=== PATIENT | female | born 1980 | race Caucasian/White ===

== ENCOUNTER 2018-03-16 00:34 | Emergency (ER) | payer MEDICAID, OTHER ==
[2018-03-16] MEDS ORDERED: NS 1,000 ML IV ONE (00:39)
--- NOTE | 2018-03-16 00:42 | EDPHY ---
H & P Time Seen by Provider: 03/16/18 00:39 HPI/ROS: HPI CHIEF COMPLAINT: Narcotic overdose HISTORY OF PRESENT ILLNESS: Patient is a 37-year-old female, she presents emergency room by EMS after she had a narcotic overdose in custodial. She was in the shower and staff found her unresponsive on the ground in the shower. It is unclear if she had head strike however she does complain of headache. This was unwitnessed. There was no CPR given however there was 4 mg intranasal Narcan given with good response. She woke up after this no vomiting. She presents emergency room stating that she does shoot up heroin she did shoot up heroin in her left arm earlier this evening. She states she has been in custodial for 42 days. She now presents emergency room stating that her only complaint is a global headache. Past Medical History: Admits to IV heroin use regularly Past Surgical History: No recent surgical history Social History: Currently incarcerated, history of substance abuse Family History: Noncontributory ROS REVIEW OF SYSTEMS: A comprehensive 10 point review of systems is otherwise negative aside from elements mentioned in the history of present illness. Exam Constitutional triage nursing summary reviewed, vital signs reviewed, awake/ alert. Eyes normal conjunctivae and sclera, EOMI, PERRLA. HENT head/neck atraumatic on exam, moist mucus membranes, no epistaxis, neck supple/ no meningismus, no raccoon eyes. Respiratory clear to auscultation bilaterally, normal breath sounds, no respiratory distress, no wheezing. Cardiovascular rate normal, regular rhythm, no murmur, no edema, distal pulses normal. Gastrointestinal soft, non-tender, no rebound, no guarding, normal bowel sounds, no distension, no pulsatile mass. Genitourinary no CVA tenderness. Musculoskeletal no midline vertebral tenderness, full range of motion, no calf swelling, no tenderness of extremities, no meningismus, good pulses, neurovascularly intact. Skin pink, warm, & dry, no rash, skin atraumatic. Neurologic awake, alert and oriented x 3, AAOx3, moves all 4 extremities equally, motor intact, sensory intact, CN II-XII intact, normal cerebellar, normal vision, normal speech. Psychiatric normal mood/affect. Heme/Lymph/Immune no lymphadenopathy. Differential Diagnosis: Includes but is not limited to in a particular order narcotic overdose, electrolyte disturbance, dehydration, narcotic overdose leading to being unresponsive, with head strike and shower Medical Decision Making: Plan for this patient IV establishment full snow remover, monitor closely for 1st degree sedation, Narcan as needed, CT scan head without contrast given headache and found down on the shower ground. Re-evaluation: CT scan head without contrast negative for acute traumatic injury called to my by Dr. Moon. 0230: Patient monitored here for over 2 hr. She has not had any further sedation. She has been resting comfortably. No complaints. She is medically cleared to go to custodial. Source: Patient, Police, EMS - Medical/Surgical History Hx Asthma: No Hx Chronic Respiratory Disease: No Hx Diabetes: No Hx Cardiac Disease: No Hx Renal Disease: No Hx Cirrhosis: No Hx Alcoholism: No Hx HIV/AIDS: No Hx Splenectomy or Spleen Trauma: No Other PMH: L ACL SURGERY. OPIATE DEPENDENCY, SUBOXONE THERAPY, Pneumonia - Social History Smoking Status: Heavy smoker Constitutional: Initial Vital Signs Temperature (C) 36.5 C 03/16/18 00:35 Heart Rate 96 03/16/18 00:35 Respiratory Rate 20 03/16/18 00:35 Blood Pressure 142/89 H 03/16/18 00:35 O2 Sat (%) 93 03/16/18 00:35 O2 Delivery Mode Room Air Allergies/Adverse Reactions: acetaminophen [From Tylenol] Allergy (Verified 03/16/18 00:44) aspirin Allergy (Verified 03/16/18 00:44) Cephalosporins Allergy (Verified 03/16/18 00:44) erythromycin base [Erythromycin Base] Allergy (Verified 03/16/18 00:44) Penicillins Allergy (Verified 03/16/18 00:44) povidone-iodine [From Betadine] Allergy (Verified 03/16/18 00:44) soap [From Betadine] Allergy (Verified 03/16/18 00:44) Sulfa (Sulfonamide Antibiotics) [Sulfa(Sulfonamide Antibiotics)] Allergy ( Verified 03/16/18 00:44) Home Medications: Medication Instructions Recorded Buprenorphine HCl/Naloxone HCl 0.5 - 1.0 tab SL TID 06/24/14 [Suboxone 8 mg-2 mg Tablet] levOFLOXACIN [levAQUIN (*)] 750 mg PO DAILY 4 Days tab 10/12/14 Vilazodone HCl [Viibryd] 40 mg PO DAILY 10/16/14 levOFLOXACIN [levAQUIN (RX)] 750 mg PO DAILY #7 tab 10/21/14 Medical Decision Making - Data Points Laboratory Results: Laboratory Results 03/16/18 00:30 03/16/18 00:30 03/16/18 03/16/18 00:30 00:30 WBC 10.21 10^3/uL H 10^3/uL (3.80-9.50) RBC 4.42 10^6/uL 10^6/uL (4.18-5.33) Hgb 12.5 g/dL L g/dL (12.6-16.3) Hct 38.7 % % (38.0-47.0) MCV 87.6 fL fL (81.5-99.8) MCH 28.3 pg pg (27.9-34.1) MCHC 32.3 g/dL L g/dL (32.4-36.7) RDW 15.1 % % (11.5-15.2) Plt Count 190 10^3/uL 10^3/uL (150-400) MPV 10.3 fL fL (8.7-11.7) Neut % (Auto) 45.4 % % (39.3-74.2) Lymph % (Auto) 45.7 % H % (15.0-45.0) [place] % (Auto) 7.1 % % (4.5-13.0) Eos % (Auto) 0.9 % % (0.6-7.6) Baso % (Auto) 0.3 % % (0.3-1.7) Nucleat RBC Rel Count 0.0 % % (0.0-0.2) Absolute Neuts (auto) 4.64 10^3/uL 10^3/uL (1.70-6.50) Absolute Lymphs (auto) 4.67 10^3/uL H 10^3/uL (1.00-3.00) Absolute Monos (auto) 0.72 10^3/uL 10^3/uL (0.30-0.80) Absolute Eos (auto) 0.09 10^3/uL 10^3/uL (0.03-0.40) Absolute Basos (auto) 0.03 10^3/uL 10^3/uL (0.02-0.10) Absolute Nucleated RBC 0.00 10^3/uL 10^3/uL (0-0.01) Immature Gran % 0.6 % % (0.0-1.1) Immature Gran # 0.06 10^3/uL 10^3/uL (0.00-0.10) Sodium 140 mEq/L mEq/L (135-145) Potassium 3.5 mEq/L mEq/L (3.3-5.0) Chloride 103 mEq/L mEq/L (97-110) Carbon Dioxide 20 mEq/l L mEq/l (22-31) Anion Gap 17 mEq/L H mEq/L (8-16) BUN 13 mg/dL mg/dL (7-23) Creatinine 0.9 mg/dL mg/dL (0.6-1.0) Estimated GFR > 60 Glucose 224 mg/dL H mg/dL (70-100) Calcium 9.2 mg/dL mg/dL (8.5-10.4) Medications Given: Discontinued Medications Sodium Chloride (Ns) 1,000 mls @ 0 mls/hr IV EDNOW ONE; Wide Open PRN Reason: Protocol Stop: 03/16/18 00:40 Last Admin: 03/16/18 00:46 Dose: 1,000 mls Departure - Departure Disposition: Home, Routine, Self-Care Clinical Impression: Narcotic overdose Qualifiers: Encounter type: initial encounter Injury intent: intentional self-harm Qualified Code(s): T40.602A - Poisoning by unspecified narcotics, intentional self-harm, initial encounter Condition: Good Instructions: Opioid Overdose (ED) Additional Instructions: 1. Please stop doing drugs specifically stop doing heroin. It is very dangerous. Referrals: NONE *PRIMARY CARE P,. [Primary Care Provider] - As per Instructions
[2018-03-16 00:51] LABS: PLATELET COUNT 190 10^3/uL (150-400)
[2018-03-16 02:55] VITALS: BP 130/83
[2018-03-16] MEDS ORDERED: ONDANSETRON DISINTEGRATING 4 MG TAB PO ONE (02:58)
[2018-03-16] MEDS ORDERED: ONDANSETRON DISINTEGRATING 4 MG TAB ONE (02:58)
== END 2018-03-16 02:53 | disposition home or self-care (01) ==
LOC: EDUNIT#
DX: T40.602A Poisoning by unspecified narcotics, intentional self-harm, initial encounter (principal); E86.9 Volume depletion, unspecified

== ENCOUNTER 2018-10-20 18:35 | Emergency (ER) | payer OTHER ==
[2018-10-20] MEDS ORDERED: NS 1,000 ML IV ONE (18:53)
[2018-10-20] MEDS ORDERED: IOPAMIDOL (ISOVUE 370) 100 ML BTL IV ONE (19:39)
[2018-10-20 19:45] LABS: PLATELET COUNT 225 10^3/uL (150-400)
[2018-10-20] MEDS ORDERED: KETOROLAC 30 MG/1 ML SDV ONE (20:34)
[2018-10-20] MEDS ORDERED: KETOROLAC 30 MG/1 ML SDV IVP ONE (20:35)
--- NOTE | 2018-10-20 20:35 | EDPHY ---
H & P Time Seen by Provider: 10/20/18 18:43 HPI/ROS: CHIEF COMPLAINT: Abdominal pain HISTORY OF PRESENT ILLNESS: 38-year-old female presents from [facility] with reports of right-sided lower abdominal pain for the last 2 days. No fever. No vomiting, no urinary complaints, no back pain. Slight decreased appetite this evening, last bowel movement 3-4 hours ago. Last menstrual cycle October 03. Had been taking ibuprofen with some relief 2 days ago but no relief of the pain today. Seen by the nursing staff and referred to the emergency department given concerns of right lower quadrant pain with rebound. REVIEW OF SYSTEMS: A comprehensive 10 system review of systems was reviewed and is otherwise negative aside from elements mentioned in the history of present illness and medical decision making. PAST MEDICAL HISTORY: Opiate dependency on Suboxone, history of pneumonia. Multiple antibiotic allergies. SOCIAL HISTORY: Heavy smoker, currently incarcerated. VITAL SIGNS Reviewed by me. GENERAL: Well-developed, well-nourished, slightly tearful, complaining of pain.. HEENT: Atraumatic. Eyes: No icterus, no injection. Mouth: moist mucous membranes. No erythema or lesions. Neck: supple with no adenopathy. LUNGS: Clear to auscultation bilaterally, no wheezes, rhonchi or rales. CARDIAC: Regular rate and rhythm, no rubs, murmurs or gallops. ABDOMEN: Soft, moderate right lower quadrant tenderness. Voluntary guarding. No rebound on my examination. Mild right flank discomfort. BACK: No CVA tenderness. EXTREMITIES: No trauma. No edema. Range of motion is normal throughout. NEURO: Alert and oriented, grossly nonfocal. SKIN: Warm and dry, no rash. PSYCHIATRIC: Normal mentation, no agitation. Smoking Status: Heavy smoker Constitutional: Initial Vital Signs Temperature (C) 36.6 C 10/20/18 18:39 Heart Rate 93 10/20/18 18:39 Respiratory Rate 18 10/20/18 18:39 Blood Pressure 134/90 H 10/20/18 18:39 O2 Sat (%) 99 10/20/18 18:39 O2 Delivery Mode Room Air Allergies/Adverse Reactions: aspirin Allergy (Verified 10/20/18 18:38) carbamazepine [From Tegretol] Allergy (Verified 10/20/18 18:38) Cephalosporins Allergy (Verified 10/20/18 18:38) erythromycin base [Erythromycin Base] Allergy (Verified 10/20/18 18:38) Penicillins Allergy (Verified 10/20/18 18:38) povidone-iodine [From Betadine] Allergy (Verified 10/20/18 18:38) soap [From Betadine] Allergy (Verified 10/20/18 18:38) Sulfa (Sulfonamide Antibiotics) [Sulfa(Sulfonamide Antibiotics)] Allergy ( Verified 10/20/18 18:38) Home Medications: Medication Instructions Recorded Amitriptyline HCl 10/20/18 Gabapentin 10/20/18 Phenazopyridine HCl [Pyridium] 200 mg PO TID #6 tab 10/20/18 levOFLOXACIN [Levofloxacin] 750 mg PO DAILY #6 tablet 10/20/18 Medical Decision Making - Diagnostics Imaging Results: Imaging Impressions Abdomen CT 10/20/18 18:53 Impression: 1. Mild right urothelial enhancement and slight thickening raises the possibility of inflammation related to a urinary tract infection. 2. 3 cm right adnexal cyst. 3. Nonspecific 2 cm right hepatic lesion. Consider ultrasound for further characterization. Of course, if there are any old outside imaging studies of the liver, we would be happy to review them to assess for interval change. 4. Constipation. 5. Normal appendix. Results discussed with Dr. Schafer at 8:16 PM. General information for patients regarding this examination can be found at [email or web address]. If you have questions or comments about this report, please contact me at [phone] (hospital) or [phone] (cell). ED Course/Re-evaluation: 38-year-old female presents from [facility] with a right lower quadrant pain for the last 2 days. IV was placed. Patient received a L of normal saline. White count is 14, electrolytes are normal, not . CT scan demonstrates normal appendix, signs of constipation, inflammatory changes of the right ureter suggestive of infection, right adnexal cyst as well as cyst in the liver. Patient was reexamined. She continues to have discomfort in the right lower quadrant. She received Toradol IV. Urinalysis demonstrates 25-50 white cells per high-power field. Due to the patient's multiple allergies, she was placed on levofloxacin to cover for urinary tract infection with early pyelonephritis. Patient was discharged with instructions regarding levofloxacin, Pyridium, magnesium citrate for constipation. She will follow up with respect to possible liver abnormalities and adnexal cyst. Differential Diagnosis: The differential diagnosis for the patient's abdominal pain was considered including but not limited to ovarian cyst, pelvic inflammatory disease, ovarian torsion, urinary tract infection, related complications, and appendicitis. - Data Points Laboratory Results: Laboratory Results 10/20/18 19:10 10/20/18 19:10 10/20/18 10/20/18 10/20/18 20:05 19:10 19:10 WBC RBC Hgb Hct MCV MCH MCHC RDW Plt Count MPV Neut % (Auto) Lymph % (Auto) [place] % (Auto) Eos % (Auto) Baso % (Auto) Nucleat RBC Rel Count Absolute Neuts (auto) Absolute Lymphs (auto) Absolute Monos (auto) Absolute Eos (auto) Absolute Basos (auto) Absolute Nucleated RBC Immature Gran % Immature Gran # Sodium 138 mEq/L mEq/L (135-145) Potassium 4.5 mEq/L mEq/L (3.5-5.2) Chloride 107 mEq/L mEq/L (97-110) Carbon Dioxide 24 mEq/l mEq/l (22-31) Anion Gap 7 mEq/L mEq/L (6-14) BUN 11 mg/dL mg/dL (7-23) Creatinine 0.6 mg/dL mg/dL (0.6-1.0) Estimated GFR > 60 Glucose 90 mg/dL mg/dL (70-100) Calcium 9.5 mg/dL mg/dL (8.5-10.4) Beta HCG, Qual NEGATIVE Urine Color PALE YELLOW Urine Appearance CLEAR Urine pH 7.0 (5.0-7.5) Ur Specific [place] 1.015 (1.002-1.030) Urine Protein NEGATIVE (NEGATIVE) Urine Ketones NEGATIVE (NEGATIVE) Urine Blood 1+ H (NEGATIVE) Urine Nitrate NEGATIVE (NEGATIVE) Urine Bilirubin NEGATIVE (NEGATIVE) Urine Urobilinogen NEGATIVE EU EU (0.2-1.0) Ur Leukocyte Esterase 1+ H (NEGATIVE) Urine RBC 5-10 /hpf H /hpf (0-3) Urine WBC 25-50 /hpf H /hpf (0-3) Ur Epithelial Cells TRACE /lpf /lpf (NONE-1+) Urine Bacteria TRACE /hpf H /hpf (NONE SEEN) Urine Glucose NEGATIVE (NEGATIVE) 10/20/18 19:10 WBC 14.09 10^3/uL H 10^3/uL (3.80-9.50) RBC 4.87 10^6/uL 10^6/uL (4.18-5.33) Hgb 13.7 g/dL g/dL (12.6-16.3) Hct 40.4 % % (38.0-47.0) MCV 83.0 fL fL (81.5-99.8) MCH 28.1 pg pg (27.9-34.1) MCHC 33.9 g/dL g/dL (32.4-36.7) RDW 14.2 % % (11.5-15.2) Plt Count 225 10^3/uL 10^3/uL (150-400) MPV 11.1 fL fL (8.7-11.7) Neut % (Auto) 79.7 % H % (39.3-74.2) Lymph % (Auto) 11.3 % L % (15.0-45.0) [place] % (Auto) 7.5 % % (4.5-13.0) Eos % (Auto) 0.5 % L % (0.6-7.6) Baso % (Auto) 0.4 % % (0.3-1.7) Nucleat RBC Rel Count 0.0 % % (0.0-0.2) Absolute Neuts (auto) 11.23 10^3/uL H 10^3/uL (1.70-6.50) Absolute Lymphs (auto) 1.59 10^3/uL 10^3/uL (1.00-3.00) Absolute Monos (auto) 1.05 10^3/uL H 10^3/uL (0.30-0.80) Absolute Eos (auto) 0.07 10^3/uL 10^3/uL (0.03-0.40) Absolute Basos (auto) 0.06 10^3/uL 10^3/uL (0.02-0.10) Absolute Nucleated RBC 0.00 10^3/uL 10^3/uL (0-0.01) Immature Gran % 0.6 % % (0.0-1.1) Immature Gran # 0.09 10^3/uL 10^3/uL (0.00-0.10) Sodium Potassium Chloride Carbon Dioxide Anion Gap BUN Creatinine Estimated GFR Glucose Calcium Beta HCG, Qual Urine Color Urine Appearance Urine pH Ur Specific [place] Urine Protein Urine Ketones Urine Blood Urine Nitrate Urine Bilirubin Urine Urobilinogen Ur Leukocyte Esterase Urine RBC Urine WBC Ur Epithelial Cells Urine Bacteria Urine Glucose Medications Given: Discontinued Medications Sodium Chloride (Ns) 1,000 mls @ 0 mls/hr IV EDNOW ONE; Wide Open PRN Reason: Protocol Stop: 10/20/18 18:54 Last Admin: 10/20/18 19:10 Dose: 1,000 mls Ketorolac Tromethamine (Toradol) 30 mg IVP EDNOW ONE Stop: 10/20/18 20:36 Last Admin: 10/20/18 20:37 Dose: 30 mg Levofloxacin (Levaquin) 750 mg PO EDNOW ONE PRN Reason: Protocol Stop: 10/20/18 20:50 Last Admin: 10/20/18 20:52 Dose: 750 mg Phenazopyridine HCl (Pyridium) 200 mg PO EDNOW ONE Stop: 10/20/18 20:50 Last Admin: 10/20/18 20:52 Dose: 200 mg Departure - Departure Disposition: Home, Routine, Self-Care Clinical Impression: Abdominal pain Qualifiers: Abdominal location: right lower quadrant Qualified Code(s): R10.31 - Right lower quadrant pain Constipation Qualifiers: Constipation type: unspecified constipation type Qualified Code(s): K59.00 - Constipation, unspecified Urinary tract infection Qualifiers: Urinary tract infection type: acute cystitis Hematuria presence: without hematuria Qualified Code(s): N30.00 - Acute cystitis without hematuria Condition: Good Instructions: Constipation (ED), Urinary Tract Infection in Women (DC), Acute Abdominal Pain (ED) Additional Instructions: 1. For urinary tract infection you have been placed on levofloxacin. Please take this as directed. Levofloxacin 750 mg by mouth daily for 7 days. Your 1st dose was given in the emergency department. 2. Please drink plenty of fluid. 3. You may also use Pyridium as needed for bladder spasm. 4. Ibuprofen 600 mg every 6-8 hours as needed for pain. 5. For your constipation, I suggest a bottle of magnesium citrate. Please drink half this bottle mixed with 16 oz of Gatorade. If you do not have significant stool output, you may take the other half of the mag citrate with additional fluid. 6. Her CT scan demonstrates a cyst in your liver. This should be further evaluated with an ultrasound. Referrals: NONE *PRIMARY CARE P,. [Primary Care Provider] - As per Instructions Prescriptions: levOFLOXACIN [Levofloxacin] 750 mg PO DAILY #6 tablet Phenazopyridine HCl [Pyridium] 200 mg PO TID #6 tab
[2018-10-20] MEDS ORDERED: PHENAZOPYRIDINE HCL 200 MG TAB PO ONE (20:49)
[2018-10-20 21:00] VITALS: BP 141/86
== END 2018-10-20 20:59 | disposition home or self-care (01) ==
DX: N30.00 Acute cystitis without hematuria (principal); K76.9 Liver disease, unspecified; K59.00 Constipation, unspecified; N83.8 Other noninflammatory disorders of ovary, fallopian tube and broad ligament; E86.9 Volume depletion, unspecified
CPT/HCPCS: 96374; J1885; Q9967